=== PATIENT | female | born 1960 | race Caucasian/White ===

== ENCOUNTER 2021-07-01 13:28 | Outpatient (CLI) | payer BC | END 2021-07-01 20:39 | disposition home or self-care (01) | LOC: SCA 13:28 | PROVIDERS: ATTEND Family Medicine | DX: I08.1 Rheumatic disorders of both mitral and tricuspid valves (principal); I27.20 Pulmonary hypertension, unspecified; R01.1 Cardiac murmur, unspecified | CPT/HCPCS: 93306 ==